=== PATIENT | male | born 1935 | race Caucasian/White ===

== ENCOUNTER 2019-04-22 04:16 | Emergency (ER) | payer MEDICARE ==
[~2019-04-22] VITALS: Ht 175.3 cm; Wt 64.5 kg
[2019-04-22 05:58] VITALS: BP 152/78
== END 2019-04-22 06:06 | disposition home or self-care (01) ==
LOC: EMS 04:21
DX: S61.411A Laceration without foreign body of right hand, initial encounter (principal); S61.412A Laceration without foreign body of left hand, initial encounter; S81.011A Laceration without foreign body, right knee, initial encounter; S81.012A Laceration without foreign body, left knee, initial encounter; S60.512A Abrasion of left hand, initial encounter; S60.511A Abrasion of right hand, initial encounter; S80.212A Abrasion, left knee, initial encounter; S80.211A Abrasion, right knee, initial encounter; Y04.2XXA Assault by strike against or bumped into by another person, initial encounter; Y93.89 Activity, other specified; Y92.89 Other specified places as the place of occurrence of the external cause; Y99.8 Other external cause status

== ENCOUNTER 2022-01-31 14:43 | Emergency (ER) | payer MEDICARE ==
[~2022-01-31] VITALS: Ht 175.3 cm; Wt 64.5 kg
[2022-01-31] MEDS ORDERED: SODIUM CHLORIDE 0.9% 250 ML IRRIG SOLUTION BOTTLE IRRIG ONE (16:30)
[2022-01-31] MEDS ORDERED: PERTUSS(ACELL),DIPH,TET VAC/PF 0.5 ML SYRINGE IM. ONE (16:30)
[2022-01-31 18:33] VITALS: BP 152/42
== END 2022-01-31 18:44 | disposition home or self-care (01) ==
LOC: EMS 14:43
DX: S01.01XA Laceration without foreign body of scalp, initial encounter (principal); W01.0XXA Fall on same level from slipping, tripping and stumbling without subsequent striking against object, initial encounter; Y93.89 Activity, other specified; Y92.89 Other specified places as the place of occurrence of the external cause; Y99.8 Other external cause status
CPT/HCPCS: 12002; 70450; 72125; 90471; 90715; 99284

== ENCOUNTER 2022-06-26 17:52 | Emergency (ER) | payer MEDICARE ==
[~2022-06-26] VITALS: Ht 180.3 cm; Wt 58.6 kg
[2022-06-26 18:56] VITALS: BP 117/66
[2022-06-26] MEDS ORDERED: PERTUSS(ACELL),DIPH,TET VAC/PF 0.5 ML SYRINGE IM. ONE (19:00)
== END 2022-06-26 22:17 | disposition home or self-care (01) ==
LOC: EMS 17:52
DX: S51.812A Laceration without foreign body of left forearm, initial encounter (principal); S81.012A Laceration without foreign body, left knee, initial encounter; S81.011A Laceration without foreign body, right knee, initial encounter; F10.20 Alcohol dependence, uncomplicated; W19.XXXA Unspecified fall, initial encounter; Y93.89 Activity, other specified; Y92.89 Other specified places as the place of occurrence of the external cause; Y99.8 Other external cause status; Z85.46 Personal history of malignant neoplasm of prostate
CPT/HCPCS: 90471; 90715; 99283